=== PATIENT | female | born 2000 | race Caucasian/White ===

== ENCOUNTER 2022-09-06 18:26 | Emergency (ER) | payer OTHER ==
[~2022-09-06] VITALS: Ht 167.6 cm; Wt 80.0 kg
[2022-09-06 18:36] VITALS: BP 134/76; PULSE 120; RESP 16; TEMP 97.5; O2SAT 98
[2022-09-06 19:13] LABS: BASOPHILS % 0.2 % (0.0-2.0); HEMATOCRIT. 44.1 % (36.0-48.0); HEMOGLOBIN. 14.8 g/dL (12.0-16.0); MEAN CORPUSCULAR VOLUME 92.3 fL (81.0-99.0); MEAN PLATELET VOLUME 8.3 fl (7.4-10.4); MONOCYTES % 3.5 % (2.0-8.0); NEUTROPHILS % 85.3 % (40.0-76.0); PLATELET 349 x1000/uL (130-400); RED BLOOD CELL COUNT 4.78 mill/uL (4.2-5.4); RED CELL DISTRIBUTION WIDTH 13.8 % (11.6-14.6)
[2022-09-06 19:19] LABS: CHLORIDE 111 mEq/L (98-107)
[2022-09-06 19:24] LABS: HCG SCREEN NEGATIVE
[2022-09-06] MEDS ORDERED: ACETAMINOPHEN 325MG TABLET PO ONE (19:30)
[2022-09-06 19:31] LABS: PROTHROMBIN TIME 10.3 sec (9.6-11.0)
== END 2022-09-06 23:44 | disposition home or self-care (01) ==
LOC: ER 18:26
DX: K62.5 Hemorrhage of anus and rectum (principal); J45.909 Unspecified asthma, uncomplicated
CPT/HCPCS: 36415; 74176; 80053; 82270; 84703; 85025; 99284

== ENCOUNTER 2022-09-14 21:13 | Emergency (ER) | payer OTHER ==
[~2022-09-14] VITALS: Ht 167.6 cm; Wt 91.0 kg
[2022-09-14 21:20] VITALS: O2SAT 100
[2022-09-14] MEDS ORDERED: LEVETIRACETAM 1000MG PREMIX 100 ML IV ONE (22:15)
[2022-09-14] MEDS ORDERED: SODIUM CHLORIDE 0.9% 1,000 ML IV ONE (22:15)
[2022-09-15 01:06] LABS: BASOPHILS % 0.3 % (0.0-2.0); HEMATOCRIT. 38.9 % (36.0-48.0); LYMPHOCYTES % 24.5 % (20.0-50.0); MEAN CORPUSCULAR HEMOGLOBIN 31.1 pg (28.0-32.0); MEAN CORPUSCULAR VOLUME 93.1 fL (81.0-99.0); MEAN PLATELET VOLUME 8.5 fl (7.4-10.4); NEUTROPHILS % 64.2 % (40.0-76.0); PLATELET 257 x1000/uL (130-400); RED BLOOD CELL COUNT 4.18 mill/uL (4.2-5.4); RED CELL DISTRIBUTION WIDTH 14.1 % (11.6-14.6)
[2022-09-15 01:21] LABS: CHLORIDE 110 mEq/L (98-107)
[2022-09-15 01:48] LABS: HCG SCREEN NEGATIVE
[2022-09-15] MEDS ORDERED: KEPP500 MT (03:05)
[2022-09-15 06:51] VITALS: BP 95/56; PULSE 76; RESP 20; TEMP 98.4
== END 2022-09-15 06:55 | disposition home or self-care (01) ==
LOC: ER 21:13
DX: R56.9 Unspecified convulsions (principal); J45.909 Unspecified asthma, uncomplicated
CPT/HCPCS: 99284; 81025; 36415; 80053; 84703; 85025; J1953; J7030

== ENCOUNTER 2022-10-05 23:39 | Emergency (ER) | payer OTHER ==
[~2022-10-05] VITALS: Ht 160 cm; Wt 70.0 kg
[~2022-10-05 23:39] MED LIST: KEPP500 MT
[2022-10-05 23:41] VITALS: O2SAT 100
[2022-10-06] MEDS ORDERED: SODIUM CHLORIDE 0.9% 1,000 ML IV ONE (00:15)
[2022-10-06 00:29] LABS: BASOPHILS % 0.2 % (0.0-2.0); EOSINOPHILS % 0.4 % (0.0-5.0); HEMATOCRIT. 42.6 % (36.0-48.0); HEMOGLOBIN. 14.6 g/dL (12.0-16.0); LYMPHOCYTES % 20.5 % (20.0-50.0); MEAN CORPUSCULAR HEMOGLOBIN 31.5 pg (28.0-32.0); MEAN CORPUSCULAR VOLUME 91.7 fL (81.0-99.0); MONOCYTES % 6.7 % (2.0-8.0); NEUTROPHILS % 72.2 % (40.0-76.0); PLATELET 292 x1000/uL (130-400); RED BLOOD CELL COUNT 4.65 mill/uL (4.2-5.4); RED CELL DISTRIBUTION WIDTH 13.9 % (11.6-14.6)
[2022-10-06 00:36] LABS: CHLORIDE 103 mEq/L (98-107)
[2022-10-06 00:44] LABS: ETHANOL BLOOD < 10 mg/dL (-10)
[2022-10-06 04:27] VITALS: BP 121/73; PULSE 76; RESP 16; TEMP 98.1
[2022-10-06] MEDS ORDERED: NAPR-1176 MT (06:31)
[2022-10-06] MEDS ORDERED: ONDA4TAB11 PO (06:31)
== END 2022-10-06 04:29 | disposition home or self-care (01) ==
LOC: ER 23:39
DX: R53.1 Weakness (principal); J45.909 Unspecified asthma, uncomplicated; Z59.00 Homelessness unspecified; Z86.59 Personal history of other mental and behavioral disorders
CPT/HCPCS: 99283; 80053; 80320; 80165; 85025; 36415; 96360; 96361; J7030; G0480

== ENCOUNTER 2022-10-06 04:55 | Emergency (ER) | payer OTHER ==
[~2022-10-06] VITALS: Ht 160 cm; Wt 92.0 kg
[2022-10-06 05:10] VITALS: BP 112/85; PULSE 86; RESP 14; TEMP 98; O2SAT 99
[2022-10-06] MEDS ORDERED: PROCHLORPERAZINE MALEATE 10MG TABLET PO ONE (06:30)
[2022-10-06] MEDS ORDERED: NAPROXEN 375MG TABLET PO ONE (06:30)
[2022-10-06] MEDS ORDERED: NAPR-1176 MT (06:31)
[2022-10-06] MEDS ORDERED: ONDA4TAB11 PO (06:31)
[2022-10-06] MEDS ORDERED: NAPROXEN 500MG TABLET PO SCH (06:45)
== END 2022-10-06 07:00 | disposition home or self-care (01) ==
LOC: ER 04:55
DX: R11.0 Nausea (principal); J45.909 Unspecified asthma, uncomplicated
CPT/HCPCS: 99283; Q0164

== ENCOUNTER 2022-10-14 21:29 | Emergency (ER) | payer OTHER ==
[~2022-10-14] VITALS: Ht 162.6 cm; Wt 90.0 kg
[~2022-10-14 21:29] MED LIST changes: +NAPR-1176 MT; +ONDA4TAB11 PO
[2022-10-14 21:38] VITALS: BP 142/86; PULSE 100; RESP 16; TEMP 98.5; O2SAT 100
[2022-10-14] MEDS ORDERED: KETOROLAC 30MG/ML VIAL IV STA (22:52)
[2022-10-14] MEDS ORDERED: SODIUM CHLORIDE 0.9% 1,000 ML IV ONE (23:00)
[2022-10-14] MEDS ORDERED: LEVETIRACETAM 1000MG PREMIX 100 ML IV ONE (23:00)
[2022-10-14 23:11] LABS: BASOPHILS % 0.2 % (0.0-2.0); EOSINOPHILS % 0.8 % (0.0-5.0); HEMATOCRIT. 41.5 % (36.0-48.0); HEMOGLOBIN. 14.1 g/dL (12.0-16.0); LYMPHOCYTES % 19.6 % (20.0-50.0); MEAN CORPUSCULAR HEMOGLOBIN 31.5 pg (28.0-32.0); MEAN CORPUSCULAR VOLUME 92.9 fL (81.0-99.0); MEAN PLATELET VOLUME 8.2 fl (7.4-10.4); MONOCYTES % 7.4 % (2.0-8.0); PLATELET 254 x1000/uL (130-400); RED BLOOD CELL COUNT 4.47 mill/uL (4.2-5.4); RED CELL DISTRIBUTION WIDTH 13.9 % (11.6-14.6)
[2022-10-15 01:05] LABS: CHLORIDE 106 mEq/L (98-107)
[2022-10-15] MEDS ORDERED: LEVETIRACETAM 1000MG PREMIX 100 ML IV NR (06:15)
[2022-10-15] MEDS ORDERED: KETOROLAC 30MG/ML VIAL IV NR (06:15)
== END 2022-10-15 10:16 | disposition home or self-care (01) ==
LOC: ER 21:29
DX: R56.9 Unspecified convulsions (principal); R42 Dizziness and giddiness; R51.9 Headache, unspecified; J45.909 Unspecified asthma, uncomplicated
CPT/HCPCS: 99284; 96361; 80053; 85025; 36415; 96365; 96366; 96375; J7030; J1953; J1885

== ENCOUNTER 2022-11-02 12:00 | Emergency (ER) | payer OTHER ==
[~2022-11-02] VITALS: Ht 170.2 cm; Wt 85.0 kg
[2022-11-02 12:04] VITALS: TEMP 98.5; O2SAT 98
[2022-11-02] MEDS ORDERED: LEVETIRACETAM 500MG PREMIX 100 ML IV ONE (12:45)
[2022-11-02 13:03] LABS: BASOPHILS % 0.3 % (0.0-2.0); HEMOGLOBIN. 14.4 g/dL (12.0-16.0); LYMPHOCYTES % 26.6 % (20.0-50.0); MEAN CORPUSCULAR HEMOGLOBIN 31.8 pg (28.0-32.0); MEAN CORPUSCULAR HGB CONC 34.4 g/dL (31.0-37.0); MEAN CORPUSCULAR VOLUME 92.4 fL (81.0-99.0); MEAN PLATELET VOLUME 7.8 fl (7.4-10.4); MONOCYTES % 10.3 % (2.0-8.0); NEUTROPHILS % 60.8 % (40.0-76.0); PLATELET 337 x1000/uL (130-400); RED BLOOD CELL COUNT 4.54 mill/uL (4.2-5.4); RED CELL DISTRIBUTION WIDTH 13.8 % (11.6-14.6); WHITE BLOOD COUNT 6.6 x1000/uL (4.5-11.0)
[2022-11-02 13:11] LABS: CHLORIDE 108 mEq/L (98-107); INDEX HEMOLYSI 1 (1-3); INDEX ICTERIC 1 (1-4); INDEX LIPEMIC 1 (1-3); POTASSIUM 4.2 mEq/L (3.5-5.1); SODIUM 140 mEq/L (136-145)
[2022-11-02 13:15] LABS: HCG SCREEN NEGATIVE
[2022-11-02 13:20] LABS: ALANINE AMINOTRANSFERASE 59 IU/L (13-61); ALBUMIN 3.5 g/dL (3.4-5.0); ASPARTATE AMINOTRANSFERASE 27 IU/L (15-37); BILIRUBIN TOTAL 0.3 mg/dL (0.1-1.0); CALCIUM 8.7 mg/dL (8.5-10.1); CARBON DIOXIDE 26 mEq/L (21-32); CREATININE 0.8 mg/dL (0.6-1.3); GLUCOSE 100 mg/dL (70-105); PROTEIN TOTAL 6.8 g/dL (6.0-8.3); UREA NITROGEN BLOOD 10 mg/dL (7-21)
[2022-11-02 15:07] VITALS: BP 100/50; PULSE 70; RESP 18
== END 2022-11-02 15:10 | disposition home or self-care (01) ==
LOC: ER 12:03
DX: G40.909 Epilepsy, unspecified, not intractable, without status epilepticus (principal); J45.909 Unspecified asthma, uncomplicated
CPT/HCPCS: 36415; 80053; 84703; 85025; 99283